=== PATIENT | female | born 1950 | race Caucasian/White ===

== ENCOUNTER 2016-07-17 09:38 | Outpatient (CLI) | payer OTHER | END 2016-07-17 09:39 | disposition home or self-care (01) | DX: K86.2 Cyst of pancreas (principal) ==

== ENCOUNTER 2016-07-21 07:46 | Outpatient (CLI) | payer MEDICARE ==
[2016-07-21] MEDS ORDERED: GADOBUTROL 10 MMOL/10 ML VIAL IVP ONE (09:26)
== END 2016-07-21 07:47 | disposition home or self-care (01) ==
DX: K86.2 Cyst of pancreas (principal); Z90.49 Acquired absence of other specified parts of digestive tract
CPT/HCPCS: 74183; A9585

== ENCOUNTER 2016-10-30 07:44 | Outpatient (CLI) | payer MEDICARE ==
--- NOTE | 2016-10-30 13:20 | DEXA Report ---
DEXA SCAN: 10/30/2016 CLINICAL INDICATION: Postmenopausal. TECHNIQUE: Dual energy x-ray absorptiometry (DXA) was performed on a [employer] system. Regions measured are the AP spine, femoral neck, and, if needed, forearm. COMPARISON: None. In accordance with the International Society for Clinical Densitometry (ISCD) guidelines, data from previous exams may be reanalyzed using current recommendations and techniques. This is done to allow a more accurate basis for comparison with the current study. FINDINGS: The data for the lumbar spine is as follows: REGION BMD (g/cm/cm) T-SCORE Z-SCORE L1 0.954 -1.5 -0.6 L2 1.175 -0.2 0.6 L3 1.299 0.8 1.7 L4 1.311 0.9 1.8 TOTAL 1.191 0.1 0.9 NOTE: All evaluable vertebrae are used for classification. The data for the hip is as follows: REGION BMD (g/cm/cm) T-SCORE Z-SCORE Neck 0.858 -1.3 -0.2 TOTAL 0.930 -0.6 0.1 NOTE: The femoral neck or total proximal femur, whichever is lowest, is used for classification. IMPRESSION: THE WHO CLASSIFICATION BASED ON THE INTERNATIONAL REFERENCE STANDARD IS OSTEOPENIA (REFERENCE LEFT FEMORAL NECK). THE FRACTURE RISK IS INCREASED. RECOMMENDATION: Patients with diagnosis of osteoporosis or osteopenia should have regular bone mineral density assessment. For those eligible for Medicare, routine testing is allowed once every 2 years. Testing frequency can be increased for patients who have rapidly progressing disease or for those who are receiving medical therapy to restore bone mass. COMMENT: World Health Organization (WHO) definitions for osteoporosis and osteopenia: NORMAL BMD: T-score at -1.0 or higher, fracture risk is low. OSTEOPENIA BMD: T-score between -1.0 and -2.5, fracture risk is increased. OSTEOPOROSIS BMD: T-score at -2.5 or lower, fracture risk high. National Osteoporosis Foundation recommends: 1. Obtain adequate dietary calcium (at least 1200 mg per day) and vitamin D (400 -800 international units per day). 2. Participate, as appropriate, in regular weightbearing and muscle- strengthening exercise. 3. Avoid tobacco use and reduce alcohol and caffeine intake. 4. For more detailed information see the website at www.NOF.org. MTDD
== END 2016-10-30 07:45 | disposition home or self-care (01) ==
LOC: DI 07:44
PROVIDERS: ATTEND Registered Nurse
DX: Z13.820 Encounter for screening for osteoporosis (principal); M85.88 Other specified disorders of bone density and structure, other site
CPT/HCPCS: 77080

== ENCOUNTER 2016-12-05 08:59 | Outpatient (CLI) | payer MEDICARE ==
--- NOTE | 2016-12-05 11:03 | MRI Report ---
EXAM: LEFT ANKLE/HINDFOOT MRI WITHOUT CONTRAST EXAM DATE: 12/05/2016 10:04 AM. CLINICAL HISTORY: Lump in the posterior left ankle Achilles region for 4 months. Pain. COMPARISON: None. TECHNIQUE: Multiplanar, multisequence T1-weighted and fluid-sensitive sequences of the ankle/hindfoot without contrast. Other: None. FINDINGS: Bones: No fractures or subluxations. No marrow edema. No bone lesions. Articular Cartilage: Unremarkable. Ligaments: The anterior and posterior tibiofibular, anterior and posterior talofibular, and calcaneof ibular ligaments are intact. The deep and superficial deltoid and spring ligaments are intact. Anterior Tendons: The tibialis anterior, extensor hallucis longus, and extensor digitorum longus tend ons are unremarkable. Medial Tendons: The tibialis posterior, flexor digitorum longus, and flexor hallucis longus tendons a re unremarkable. Lateral Tendons: The peroneus brevis and longus are unremarkable. Achilles Tendon: There is a fusiform thickening of the Achilles tendon commencing approximately 1.5 c m proximal to its distal attachment. The thickened region extends across approximately 5.5 cm. There is increased T1 and T2 signal in the Achilles tendon distal to this region. The findings are consiste nt with Achilles tendinosis and partial-thickness tearing of the distal attachment. There is mild adeline ma in Kager's fat pad. Musculature: No edema or fatty atrophy. Other: Small ankle and subtalar joint effusion. The contents of the sinus tarsi and tarsal tunnel are unremarkable. No plantar fasciitis. The subcutaneous tissues are unremarkable. IMPRESSION: 1. 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 2. No other significant pathology. Small ankle and subtalar joint effusion. [facility]IA MUSCULOSKELETAL RADIOLOGY SECTION Referring Provider Line: [phone] SITE ID: [id number]
== END 2016-12-05 09:00 | disposition home or self-care (01) ==
LOC: DI 08:59
PROVIDERS: ATTEND Podiatrist
DX: S86.012A Strain of left Achilles tendon, initial encounter (principal); M25.472 Effusion, left ankle

== ENCOUNTER 2017-05-15 14:46 | Outpatient (CLI) | payer MEDICARE | END 2017-05-15 14:47 | disposition EMS.NT | LOC: EMS 14:46 | PROVIDERS: ATTEND Surgery | DX: R00.0 Tachycardia, unspecified (principal) ==

== ENCOUNTER 2017-05-15 15:39 | Emergency (ER) | payer MEDICARE ==
--- NOTE | 2017-05-15 16:05 | ED Physician Documentation ---
PD HPI CHEST PAIN - Stated complaint Stated Complaint: FAST HB - Chief complaint Chief Complaint: Cardiac - History obtained from History obtained from: Patient - History of Present Illness Timing - onset: Today (about an hour FLOWER GROWER, had feeling of PSVT which did not resolve with Valsalva techniques nor time. She called 911 as it had lasted about 30 minutes, and was resolved on EMS arrival. Medics encouraged her to come get checked anyway. She is feeling okay enroute.) Timing - onset during: Light activity Timing - duration: Minutes (30) Timing - details: Abrupt onset, Now resolved Quality: Pressure. No: Tightness Location: Substernal Radiation: No: Jaw, Neck Improved by: No: Rest Associated symptoms: Palpitations. No: Shortness of air, Nausea, Vomiting, Feeling faint / dizzy Similar symptoms before: Diagnosis (PSVT with usually shorter episodes or improved with Valsalva.) Recently seen: Not recently seen Review of Systems Constitutional: denies: Fever, Chills Nose: denies: Rhinorrhea / runny nose, Congestion Throat: denies: Sore throat Cardiac: reports: Palpitations. denies: Chest pain / pressure, Pedal edema, Calf pain Respiratory: denies: Dyspnea, Cough GI: denies: Nausea, Vomiting Skin: denies: Rash, Lesions Musculoskeletal: denies: Extremity swelling PD PAST MEDICAL HISTORY - Past Medical History Past Medical History: Yes Cardiovascular: Hypertension, Other Respiratory: None Neuro: None Endocrine/Autoimmune: None GI: Cholelithiasis : None Psych: Claustrophobia Musculoskeletal: None Derm: None - Past Surgical History General: Colonoscopy /[employer]: Hysterectomy, Mastectomy - Present Medications Home Medications: Ambulatory Orders Medication Instructions Recorded Confirmed Calcium Carb, Citrate/Vit D3 1 tab PO DAILY 10/06/13 05/15/17 [Citracal + D ER Tablet] Lisinopril [Zestril] 20 mg PO BID 10/06/13 05/15/17 Metoprolol Succinate [Toprol Xl] 50 mg PO BID 10/06/13 05/15/17 Multivitamin [Multivitamins] 1 each PO DAILY 10/06/13 05/15/17 Potassium Chloride [Micro-K] 10 meq PO DAILY 10/06/13 05/15/17 hydroCHLOROthiazide 25 mg PO DAILY 10/06/13 05/15/17 [Hydrochlorothiazide] Aspirin [Aspir 81] 81 mg PO DAILY 08/03/14 05/15/17 - Allergies Allergies/Adverse Reactions: Allergies Allergy/AdvReac Type Severity Reaction Status Date / Time acetaminophen [From Vicodin] AdvReac Intermediate Hallucinati Verified 05/15/17 15:50 ons codeine AdvReac Intermediate Hallucinati Verified 05/15/17 15:50 ons hydrocodone bitartrate * AdvReac Intermediate Hallucinati Verified 05/15/17 15: 50 [From Vicodin] ons hydromorphone HCl * AdvReac Intermediate Nausea Verified 05/15/17 15:50 [From Dilaudid] - Social History Does the pt smoke?: No Smoking Status: Never smoker PD ED PE NORMAL - Vitals Vital signs reviewed: Yes - General General: Alert and oriented X 3, Well developed/nourished - HEENT HEENT: Pharynx benign - Neck Neck: Supple, no meningeal sign, No adenopathy - Cardiac Cardiac: RRR, No murmur - Respiratory Respiratory: Clear bilaterally - Abdomen Abdomen: Soft, Non tender - Back Back: No CVA TTP - Derm Derm: Normal color, Warm and dry - Extremities Extremities: Normal ROM s pain, No edema, No calf tenderness / cord - Neuro Neuro: Alert and oriented X 3, No motor deficit, Normal speech Results - Vitals Vitals: Oxygen O2 Source Room air - EKG (time done) 15:57 Rate: Rate (enter#) (89) Rhythm: NSR [place]: Normal Intervals: Normal [place] QRS: Normal Ischemia: Normal ST segments. No: ST elevation c/w ischemia, ST depression - Labs Labs: Laboratory Tests 05/15/17 16:36 Sodium 138 Potassium 3.6 Chloride 101 Carbon Dioxide 26 Anion Gap 11.0 BUN 24 H Creatinine 0.7 Estimated GFR (MDRD) 83 L Glucose 112 H Calcium 9.7 Magnesium 2.1 Total Bilirubin 0.3 AST 33 ALT 40 Alkaline Phosphatase 69 Total Protein 7.1 Albumin 4.3 Globulin 2.8 Albumin/Globulin Ratio 1.5 Lipase 35 PD MEDICAL DECISION MAKING - ED course Complexity details: re-evaluated patient (still no recurrent SVT here. ), considered differential (SVT episode resolved by EMS arrival. They encouraged her to come get eval, but really it is resolved and she is feeling okay. Check lytes to see if okay, otherwise not needing intervention. ), d/w patient Departure - Departure Disposition: 01 Home, Self Care Clinical Impression: PAT (paroxysmal atrial tachycardia) Condition: Stable Record reviewed to determine appropriate education?: Yes Instructions: ED Tachycardia Pat PSVT Follow-Up: Mitzi Abdul ARNP [Primary Care Provider] - Comments: Stay well-hydrated. Double your potassium supplement for the next 7-10 days and then resume the normal. Other medications the same. If you have recurrent episodes often are prolonged, follow-up with your primary care to see if they want to increase her metoprolol dose. If you have a episode that last particularly long to feeling uncomfortable, return to the ER. Discharge Date/Time: 05/15/17 17:59
[2017-05-15 16:54] LABS: ALBUMIN 4.3 g/dL (3.2-5.5); ALBUMIN/GLOBULIN RATIO 1.5 (1.0-2.2); BILIRUBIN,TOTAL 0.3 mg/dL (0.2-1.0); CALCIUM 9.7 mg/dL (8.5-10.3); CREATININE 0.7 mg/dL (0.4-1.0); MAGNESIUM 2.1 mg/dL (1.7-2.8); TOTAL PROTEIN 7.1 g/dL (6.7-8.2)
[2017-05-15] MEDS ORDERED: POTASSIUM BICARB 25 MEQ TABLET PO STA (17:12)
[2017-05-15 17:47] VITALS: BP 124/67
== END 2017-05-15 17:59 | disposition home or self-care (01) ==
LOC: ED 15:39
DX: I47.1 Supraventricular tachycardia (principal); R94.31 Abnormal electrocardiogram [ECG] [EKG]; I10 Essential (primary) hypertension
CPT/HCPCS: 36415; 80053; 83690; 83735; 93005; 99283; A9270

== ENCOUNTER 2021-11-22 09:34 | Outpatient (CLI) | payer MEDICARE ==
[~2021-11-22 09:34] MED LIST: GADOBUTROL 10 MMOL/10 ML VIAL ONE
--- NOTE | 2021-11-22 13:48 | DEXA Report ---
PROCEDURE: Dexa Spine and/or Hip INDICATIONS: CYST OF PANCREAS, DISORDER OF BONE TECHNIQUE: Dual energy x-ray absorptiometry (DXA) was performed on a [employer] System. Regions measur ed are the AP Spine, femoral neck, and if needed forearm. COMPARISON: DEXA 10/30/2016 FINDINGS: Lumbar Spine: Bone Mineral Density 1.154 g/cm/cm,T score -0.2, compared to 0.1 Left Hip: Bone Mineral Density 0.981 g/cm/cm,T score -0.2, compared to -0.6 Left Femoral Neck: Bone Mineral Density 0.867 g/cm/cm, T score -1.2, compared to -1.3 (T score greater or equal to -1.0: NORMAL) (T score from -1.1 to -2.4: OSTEOPENIA) (T score less than or equal to -2.5 to: OSTEOPOROSIS) Impression: There is a minimally improved appearance of mild osteopenia within the left femoral neck. Slight loss of bone mineral density within the lumbar spine and left hip although remaining within ra nge of normal density. Patients with diagnosis of osteoporosis or osteopenia should have regular bone mineral density assess ment. For those eligible for Medicare, routine testing is allowed once every 2 years. Testing frequ ency can be increased for patients who have rapidly progressing disease or for those who are receivin g medical therapy to restore bone mass. Reviewed by: Lidia Madrid MD on 11/22/2021 1:47 PM PDT Approved by: Lidia Madrid MD on 11/22/2021 1:47 PM PDT Station ID: [id number]
--- NOTE | 2021-11-22 15:32 | MRI Report ---
PROCEDURE: Abdomen W/WO INDICATIONS: CYST OF PANCREAS, DISORDER OF BONE CONTRAST: IV CONTRAST: Gadavist ml: 9.7 TECHNIQUE: Coronal ultra fast SE through the abdomen, axial 2-D spoiled GE in- and [id number], and breath-hold T2 FSE with fat saturation through the biliary system and pancreas. coronal and axial thin-slice ul tra fast SE, radial thick-slab ultra fast SE centered on the extrahepatic bile ducts. COMPARISON: MRI Pancreas/MRCP 07/21/2016. CT abdomen pelvis with contrast 09/04/2014. FINDINGS: Image quality: Adequate. Pancreas and biliary system: Redemonstrated dilation of the extrahepatic bile duct with prominence of the central intrahepatic ducts. No peripheral intrahepatic ductal dilation demonstrated. The extrahe patic duct measures 1.3 cm at the level of the leon hepatis, previously 0.9 cm. There is tapering of the duct distally. No definite choledocholithiasis. Previously demonstrated cystic structure at the junction of the pancreatic body and tail now measures 1.4 x 1.1 cm (axial T2 fat-sat haste series 6 image 16) previously 0.9 x 0.7 cm. No definite soft ti ssue nodularity or abnormal enhancement. No dilation of the main pancreatic duct demonstrated. Postsurgical changes at the gallbladder fossa are present. Suspect prior cholecystectomy with promine nt cystic duct remnant but partial cholecystectomy is also possible. Other solid organs: Liver and spleen are normal in size. There is diffuse hepatic signal loss on ou t-of-phase images compatible with hepatic steatosis. No adrenal nodules. Both kidneys are normal in size, without hydronephrosis. Nodes and vessels: No retroperitoneal or mesenteric adenopathy by size criteria. Aorta and inferior vena cava are normal in size. Bowel and peritoneum: Unenhanced bowel loops are normal in caliber. No free fluid. Similar 1.1 cm nodular structure adjacent to the inferior right lobe of the liver (for example series 20 image 62, s eries 2 image 24) which could represent a dropped gallstone. Lung bases: No basal pleural effusions. IMPRESSION: 1. Interval increase in size of the cystic structure at the pancreatic body/tail now measuring up to 1.4 cm. No highly suspicious features such as soft tissue nodularity are visualized. This is a nonspe cific finding but could represent a sidebranch IPMN, other cystic neoplasms are not excluded. Per ACR incidental findings guidelines, given interval growth continued imaging follow-up is recommended. Fo llow-up imaging in 6 months is recommended or EUS/FNA. 2. Hepatic steatosis. 3. Postsurgical changes at the gallbladder fossa, suspect prior cholecystectomy with a prominent cyst ic duct remnant versus partial cholecystectomy. Dilation of the extrahepatic bile duct is present, pr obably related to postcholecystectomy reservoir effect however correlation with the patient's symptom s and laboratory markers for biliary obstruction may be helpful. No choledocholithiasis visualized. 4. Similar 1.1 cm structure adjacent to the inferior right lobe of the liver, nonspecific, potentiall y a dropped gallstone. Reviewed by: Bello Dailey MD on 11/22/2021 3:31 PM PDT Approved by: Bello Dailey MD on 11/22/2021 3:31 PM PDT Station ID: [id number]
== END 2021-11-22 09:35 | disposition home or self-care (01) ==
LOC: DI 09:34
PROVIDERS: ATTEND Physician Assistant
DX: K86.2 Cyst of pancreas (principal); M85.88 Other specified disorders of bone density and structure, other site; K76.0 Fatty (change of) liver, not elsewhere classified; R19.00 Intra-abdominal and pelvic swelling, mass and lump, unspecified site
CPT/HCPCS: 74183; 77080; A9585

== ENCOUNTER 2022-05-08 07:02 | Outpatient (CLI) | payer MEDICARE ==
[2022-05-08 14:21] LABS: BASOPHILS % (AUTO) 0.4 %; EOSINOPHILS # (AUTO) 0.2 10^3/uL (0.0-0.7); EOSINOPHILS % (AUTO) 3.2 %; HCT - HEMATOCRIT 46.7 % (37.0-47.0); HGB - HEMOGLOBIN 14.7 g/dL (12.0-16.0); LYMPHOCYTES # (AUTO) 2.1 10^3/uL (1.5-3.5); LYMPHOCYTES % (AUTO) 29.5 %; MEAN CORPUSCULAR HEMOGLOBIN 27.2 pg (27.0-31.0); MEAN CORPUSCULAR HGB CONC 31.5 g/dL (32.0-36.0); MEAN CORPUSCULAR VOLUME 86.3 fL (81.0-99.0); MEAN PLATELET VOLUME 11.3 fL (7.9-10.8); MONOCYTES # (AUTO) 0.5 10^3/uL (0.0-1.0); MONOCYTES % (AUTO) 6.4 %; NEUTROPHILS # (AUTO) 4.2 10^3/uL (1.5-6.6); NEUTROPHILS % (AUTO) 60.1 %; PLT - PLATELET COUNT 242 10^3/uL (130-450); RED BLOOD COUNT 5.41 10^6/uL (4.20-5.40); RED CELL DISTRIBUTION WIDTH 12.6 % (12.0-15.0)
[2022-05-08 14:35] LABS: ALBUMIN 4.2 g/dL (3.2-5.5); ALBUMIN/GLOBULIN RATIO 1.6 (1.0-2.2); BILIRUBIN,TOTAL 0.9 mg/dL (0.2-1.0); CALCIUM 9.2 mg/dL (8.5-10.3); CREATININE 0.7 mg/dL (0.4-1.0); TOTAL PROTEIN 6.8 g/dL (6.7-8.2)
== END 2022-05-08 07:03 | disposition home or self-care (01) ==
LOC: LAB.S 07:02
PROVIDERS: ATTEND Physician Assistant
DX: B35.1 Tinea unguium (principal)
CPT/HCPCS: 36415; 80053; 85025

== ENCOUNTER 2022-06-20 09:32 | Outpatient (CLI) | payer MEDICARE ==
[2022-06-20 14:58] LABS: BASOPHILS # (AUTO) 0.1 10^3/uL (0.0-0.1); BASOPHILS % (AUTO) 0.9 %; EOSINOPHILS # (AUTO) 0.3 10^3/uL (0.0-0.7); EOSINOPHILS % (AUTO) 4.9 %; HCT - HEMATOCRIT 46.7 % (37.0-47.0); HGB - HEMOGLOBIN 14.8 g/dL (12.0-16.0); MEAN CORPUSCULAR HEMOGLOBIN 28.1 pg (27.0-31.0); MEAN CORPUSCULAR HGB CONC 31.7 g/dL (32.0-36.0); MEAN CORPUSCULAR VOLUME 88.6 fL (81.0-99.0); MONOCYTES # (AUTO) 0.4 10^3/uL (0.0-1.0); MONOCYTES % (AUTO) 5.3 %; NEUTROPHILS # (AUTO) 4.2 10^3/uL (1.5-6.6); NEUTROPHILS % (AUTO) 59.8 %; PLT - PLATELET COUNT 260 10^3/uL (130-450); RED BLOOD COUNT 5.27 10^6/uL (4.20-5.40); RED CELL DISTRIBUTION WIDTH 13.2 % (12.0-15.0)
[2022-06-20 15:16] LABS: ALBUMIN 4.2 g/dL (3.2-5.5); ALBUMIN/GLOBULIN RATIO 1.6 (1.0-2.2); BILIRUBIN,TOTAL 0.6 mg/dL (0.2-1.0); CALCIUM 9.6 mg/dL (8.5-10.3); CREATININE 0.7 mg/dL (0.4-1.0); POTASSIUM 3.8 mmol/L (3.5-5.0); TOTAL PROTEIN 6.9 g/dL (6.7-8.2)
== END 2022-06-20 09:33 | disposition home or self-care (01) ==
LOC: LAB.S 09:32
PROVIDERS: ATTEND Physician Assistant
DX: B35.1 Tinea unguium (principal)
CPT/HCPCS: 36415; 80053; 85025

== ENCOUNTER 2022-07-28 07:03 | Outpatient (CLI) | payer MEDICARE ==
[2022-07-28 14:31] LABS: ALBUMIN/GLOBULIN RATIO 1.5 (1.0-2.2); BILIRUBIN,TOTAL 0.6 mg/dL (0.2-1.0); CALCIUM 8.8 mg/dL (8.5-10.3); CREATININE 0.7 mg/dL (0.4-1.0); POTASSIUM 3.9 mmol/L (3.5-5.0); TOTAL PROTEIN 6.6 g/dL (6.7-8.2)
[2022-07-28 14:42] LABS: BASOPHILS # (AUTO) 0.1 10^3/uL (0.0-0.1); BASOPHILS % (AUTO) 0.7 %; EOSINOPHILS # (AUTO) 0.3 10^3/uL (0.0-0.7); EOSINOPHILS % (AUTO) 4.5 %; HCT - HEMATOCRIT 44.7 % (37.0-47.0); HGB - HEMOGLOBIN 14.1 g/dL (12.0-16.0); LYMPHOCYTES # (AUTO) 1.6 10^3/uL (1.5-3.5); LYMPHOCYTES % (AUTO) 21.3 %; MEAN CORPUSCULAR HEMOGLOBIN 27.7 pg (27.0-31.0); MEAN CORPUSCULAR HGB CONC 31.5 g/dL (32.0-36.0); MEAN CORPUSCULAR VOLUME 87.8 fL (81.0-99.0); MONOCYTES # (AUTO) 0.4 10^3/uL (0.0-1.0); NEUTROPHILS % (AUTO) 67.2 %; PLT - PLATELET COUNT 236 10^3/uL (130-450); RED BLOOD COUNT 5.09 10^6/uL (4.20-5.40); WHITE BLOOD COUNT 7.4 x10^3/uL (4.8-10.8)
== END 2022-07-28 07:04 | disposition home or self-care (01) ==
LOC: LAB.S 07:03
PROVIDERS: ATTEND Physician Assistant
DX: B35.1 Tinea unguium (principal)
CPT/HCPCS: 36415; 80053; 85025

== ENCOUNTER 2022-09-01 07:04 | Outpatient (CLI) | payer MEDICARE ==
[2022-09-01 14:33] LABS: BASOPHILS % (AUTO) 0.5 %; EOSINOPHILS # (AUTO) 0.3 10^3/uL (0.0-0.7); EOSINOPHILS % (AUTO) 4.1 %; HCT - HEMATOCRIT 45.4 % (37.0-47.0); HGB - HEMOGLOBIN 14.6 g/dL (12.0-16.0); LYMPHOCYTES # (AUTO) 1.8 10^3/uL (1.5-3.5); LYMPHOCYTES % (AUTO) 23.7 %; MEAN CORPUSCULAR HEMOGLOBIN 28.2 pg (27.0-31.0); MEAN CORPUSCULAR HGB CONC 32.2 g/dL (32.0-36.0); MEAN CORPUSCULAR VOLUME 87.8 fL (81.0-99.0); MEAN PLATELET VOLUME 10.9 fL (7.9-10.8); MONOCYTES # (AUTO) 0.5 10^3/uL (0.0-1.0); MONOCYTES % (AUTO) 6.4 %; NEUTROPHILS # (AUTO) 4.9 10^3/uL (1.5-6.6); PLT - PLATELET COUNT 232 10^3/uL (130-450); RED BLOOD COUNT 5.17 10^6/uL (4.20-5.40); RED CELL DISTRIBUTION WIDTH 12.9 % (12.0-15.0); WHITE BLOOD COUNT 7.5 x10^3/uL (4.8-10.8)
[2022-09-01 15:01] LABS: ALBUMIN 4.1 g/dL (3.2-5.5); ALBUMIN/GLOBULIN RATIO 1.6 (1.0-2.2); BILIRUBIN,TOTAL 0.6 mg/dL (0.2-1.0); CALCIUM 9.1 mg/dL (8.5-10.3); CREATININE 0.7 mg/dL (0.4-1.0); POTASSIUM 3.7 mmol/L (3.5-5.0); TOTAL PROTEIN 6.7 g/dL (6.7-8.2)
== END 2022-09-01 07:05 | disposition home or self-care (01) ==
LOC: LAB.S 07:04
PROVIDERS: ATTEND Physician Assistant
DX: B35.1 Tinea unguium (principal)
CPT/HCPCS: 36415; 80053; 85025

== ENCOUNTER 2022-10-13 07:07 | Outpatient (CLI) | payer MEDICARE ==
[2022-10-13 15:02] LABS: BASOPHILS % (AUTO) 0.5 %; EOSINOPHILS # (AUTO) 0.3 10^3/uL (0.0-0.7); HCT - HEMATOCRIT 46.6 % (37.0-47.0); HGB - HEMOGLOBIN 14.7 g/dL (12.0-16.0); LYMPHOCYTES # (AUTO) 1.8 10^3/uL (1.5-3.5); LYMPHOCYTES % (AUTO) 24.4 %; MEAN CORPUSCULAR HEMOGLOBIN 27.8 pg (27.0-31.0); MEAN CORPUSCULAR HGB CONC 31.5 g/dL (32.0-36.0); MEAN CORPUSCULAR VOLUME 88.1 fL (81.0-99.0); MEAN PLATELET VOLUME 11.7 fL (7.9-10.8); MONOCYTES # (AUTO) 0.4 10^3/uL (0.0-1.0); MONOCYTES % (AUTO) 5.9 %; NEUTROPHILS # (AUTO) 4.9 10^3/uL (1.5-6.6); NEUTROPHILS % (AUTO) 64.9 %; PLT - PLATELET COUNT 250 10^3/uL (130-450); RED BLOOD COUNT 5.29 10^6/uL (4.20-5.40); WHITE BLOOD COUNT 7.5 x10^3/uL (4.8-10.8)
[2022-10-13 15:40] LABS: ALBUMIN 4.2 g/dL (3.2-5.5); ALBUMIN/GLOBULIN RATIO 1.5 (1.0-2.2); BILIRUBIN,TOTAL 0.6 mg/dL (0.2-1.0); CALCIUM 8.9 mg/dL (8.5-10.3); CREATININE 0.7 mg/dL (0.4-1.0); POTASSIUM 4.2 mmol/L (3.5-5.0)
== END 2022-10-13 07:08 | disposition home or self-care (01) ==
LOC: LAB.S 07:07
PROVIDERS: ATTEND Physician Assistant
DX: B35.1 Tinea unguium (principal)
CPT/HCPCS: 36415; 80053; 85025

== ENCOUNTER 2023-05-08 12:28 | Outpatient (CLI) | payer MEDICARE ==
[2023-05-08 12:55] LABS: CREATININE 0.7 mg/dL (0.6-1.3)
[2023-05-08] MEDS ORDERED: GADOTERATE MEGLUMINE 10 MMOL/20 ML VIAL ONE (14:41)
--- NOTE | 2023-05-08 15:43 | MRI Report ---
PROCEDURE: ABDOMEN W/WO INDICATIONS: CYST OF PANCREAS CONTRAST: Clariscan 20ml TECHNIQUE: Coronal ultra fast SE, axial 2D spoiled GE in- and [id number]; axial breath-hold T2 fast SE. Dynam ic axial ultra fast GE during the administration of contrast; post-contrast coronal ultra fast GE or 2D spoiled GE with fat saturation from the hepatic dome to the iliac crests. Optional diffusion weig hted imaging and ADC may be performed. COMPARISON: 11/22/2021 FINDINGS: Image quality: Diagnostic, but there is mild motion artifact Lower chest: No basal effusions. Suspected basal atelectasis/scarring. Liver: Hepatic steatosis. Stable small lesion or artifact in Morison's pouch at the capsule (), differential includes a clip or gallstone. Gallbladder and biliary system: Gallbladder is absent. Prominent biliary system is unchanged. Pancreas: No significant ductal dilation. The cystic lesion at the junction of the body/tail measures up to 1.4 cm per thin enhancing wall is seen, without significant soft tissue nodularity within the limits of motion artifact. Spleen: Unremarkable, not enlarged Adrenals: No discrete nodule Kidneys: No hydronephrosis or solid renal mass Vessels and lymph nodes: The main portal vein is patent. No abdominal aortic aneurysm. No pathologic lymph nodes by size criteria. Bowel and peritoneum: No pathologic ascites or bowel obstruction. Body wall: Unremarkable Bones: Degenerative changes. IMPRESSION: Unchanged distal pancreatic body cystic lesion measuring 1.4 cm. The 10 years of stability could be e stablished with MRI at clinical discretion every 1-2 years. This is enlarged from more remote imaging from 2017, stable compared to 2021. Hepatic steatosis. Other findings as above. Reviewed by: Humza Gongora MD on 05/08/2023 3:42 PM PST Approved by: Humza Gongora MD on 05/08/2023 3:42 PM PST Station ID: [id number]
[2023-05-09] MEDS ORDERED: GADOTERATE MEGLUMINE 10 MMOL/20 ML VIAL IVP ONE (10:43)
== END 2023-05-08 12:29 | disposition home or self-care (01) ==
LOC: LAB 12:28
DX: K86.2 Cyst of pancreas (principal); K76.0 Fatty (change of) liver, not elsewhere classified
CPT/HCPCS: 36415; 74183; 82565; A9575